=== PATIENT | female | born 1955 | race Caucasian/White ===

== ENCOUNTER 2017-01-06 07:29 | Emergency (ER) | payer OTHER ==
[~2017-01-06] VITALS: Ht 167.6 cm; Wt 90.7 kg
--- NOTE | 2017-01-06 07:39 | Emergency Room Report ---
History of Present Illness General Chief Complaint: Abdominal Pain Source: Patient, EMS Present Illness HPI Patient presents by paramedics chief complaint by paramedics from the rehabilitation facility was regarding abdominal pain and vaginal bleeding However upon arrival the patient appears short of breath and tachypneic felt warm to touch and was hypoxic patient herself is a poor historian Upon evaluation tell staff to stop asking questions She does not want to answer any questions There is no reports of vomiting or diarrhea Unknown regarding vaginal versus rectal bleeding Patient appears anxious and tremulous History of present illness stays limited upon initial arrival Allergies: Coded Allergies: No Known Allergies (Unverified , 01/06/17) Patient History Limited by: medical condition Past Medical History: see triage record Pertinent Family History: unable to obtain, other - brother has ascites Now: No Reviewed Nursing Documentation: PMH: Agreed, PSxH: Agreed Nursing Documentation-PMH Past Medical History: No History, Except For Hx Hypertension: Yes Hx Asthma: No - ANEMIA Hx COPD: No - HYPOTHYROIDISIM Hx Diabetes: Yes Hx Gastrointestinal Problems: Yes - HEP C Review of Systems All Other Systems: limited - Other than the ones mentioned in the history of present illness all others are reviewed however they do stay limited due to the patient's mental status Physical Exam Vital Signs Date Time Temp Pulse Resp B/P (MAP) Pulse Ox O2 Delivery O2 Flow Rate FiO2 01/06/17 07:19 88 20 121/47 96 Non-Rebreather 8.0 Sp02 EP Interpretation: reviewed, normal General Appearance: mild distress - Patient appears anxious uncomfortable Head: normocephalic, atraumatic Eyes: bilateral eye PERRL, bilateral eye EOMI ENT: normal pharynx, no angioedema Neck: supple Respiratory: crackles - diffusely both lower lobes Cardiovascular #1: regular rate, rhythm, no edema Gastrointestinal: other - Some ascites is appreciated, otherwise appropriate bowel sounds, no obvious focal discomfort Rectal: other - Bright red blood per rectum Genitourinary: no CVA tenderness Musculoskeletal: other - no obvious focal deficits Neurologic: alert, oriented x3, responsive Skin: other - poor turgor Lymphatic: no adenopathy Medical Decision Making Diagnostic Impression: Primary Impression: GI bleed Additional Impression: Abdominal pain ER Course Patient is a fairly complex patient with multiple differential to consideration including but not limited to cardiac cardiopulmonary and vascular emergencies Patient had initially presented with possible vaginal bleeding however evaluation reveals it is likely rectal in nature patient's hemoglobin is also low however patient remains hemodynamically stable At this time is appropriate for transfer given insurance reasons Labs Test 01/06/17 07:43 01/06/17 08:43 White Blood Count 11.5 K/UL (4.8-10.8) Red Blood Count 3.11 M/UL (4.20-5.40) Hemoglobin 8.4 G/DL (12.0-16.0) Hematocrit 27.6 % (37.0-47.0) Mean Corpuscular Volume 89 FL (80-99) Mean Corpuscular Hemoglobin 27.1 PG (27.0-31.0) Mean Corpuscular Hemoglobin Concent 30.5 G/DL (32.0-36.0) Red Cell Distribution Width 17.8 % (11.6-14.8) Platelet Count 116 K/UL (150-450) Mean Platelet Volume 7.1 FL (6.5-10.1) Neutrophils (%) (Auto) 69.8 % (45.0-75.0) Lymphocytes (%) (Auto) 14.1 % (20.0-45.0) Monocytes (%) (Auto) 10.4 % (1.0-10.0) Eosinophils (%) (Auto) 4.5 % (0.0-3.0) Basophils (%) (Auto) 1.2 % (0.0-2.0) Prothrombin Time 13.4 SEC (9.30-11.50) Prothromb Time International Ratio 1.3 (0.9-1.1) Activated Partial Thromboplast Time 32 SEC (23-33) Sodium Level 139 MMOL/L (136-145) Potassium Level 5.8 MMOL/L (3.5-5.1) Chloride Level 106 MMOL/L (98-107) Carbon Dioxide Level 29 MMOL/L (21-32) Anion Gap 5 mmol/L (5-15) Blood Urea Nitrogen 35 mg/dL (7-18) Creatinine 1.3 MG/DL (0.55-1.30) Estimat Glomerular Filtration Rate 41.4 mL/min (>60) Glucose Level 124 MG/DL (74-106) Lactic Acid Level 1.90 mmol/L (0.66-2.22) Calcium Level 8.4 MG/DL (8.5-10.1) Phosphorus Level 3.4 MG/DL (2.5-4.9) Magnesium Level 2.1 MG/DL (1.8-2.4) Total Bilirubin 1.4 MG/DL (0.2-1.0) Direct Bilirubin 0.5 MG/DL (0.0-0.3) Aspartate Amino Transf (AST/SGOT) 36 U/L (15-37) Alanine Aminotransferase (ALT/SGPT) 22 U/L (12-78) Alkaline Phosphatase 125 U/L (46-116) Total Creatine Kinase 36 U/L (26-308) Creatine Kinase MB 0.8 NG/ML (0.0-3.6) Creatine Kinase MB Relative Index 2.2 Troponin I 0.007 ng/mL (0.000-0.056) Pro-B-Type Natriuretic Peptide 769 pg/mL (0-125) Total Protein 6.2 G/DL (6.4-8.2) Albumin 2.5 G/DL (3.4-5.0) Globulin 3.7 g/dL Albumin/Globulin Ratio 0.7 (1.0-2.7) Lipase 74 U/L (73-393) Urine Color Yellow Urine Appearance Clear Urine pH 6 (4.5-8.0) Urine Specific Grand Chain 1.010 (1.005-1.035) Urine Protein Negative (NEGATIVE) Urine Glucose (UA) Negative (NEGATIVE) Urine Ketones Negative (NEGATIVE) Urine Occult Blood Negative (NEGATIVE) Urine Nitrite Negative (NEGATIVE) Urine Bilirubin Negative (NEGATIVE) Urine Urobilinogen Normal MG/DL (0.0-1.0) Urine Leukocyte Esterase 1+ (NEGATIVE) Urine RBC 0-2 /HPF (0 - 2) Urine WBC 2-4 /HPF (0 - 2) Urine Squamous Epithelial Cells Few /LPF (NONE/OCC) Urine Bacteria Few /HPF (NONE) Urine Yeast Few /HPF (NONE) Rhythm Strip Diag. Results EP Interpretation: yes Rate: 67 Rhythm: NSR, no PVC's, no ectopy Chest X-Ray Diagnostic Results Chest X-Ray Diagnostic Results : Chest X-Ray Ordered: Yes # of Views/Limited/Complete: 1 View Indication: Chest Pain EP Interpretation: Yes PA Xray: Interpretation reviewed, by supervising MD, and agrees with findings. Impression: No acute disease Last Vital Signs Date Time Temp Pulse Resp B/P (MAP) Pulse Ox O2 Delivery O2 Flow Rate FiO2 01/06/17 07:19 88 20 121/47 96 Non-Rebreather 8.0 Status: improved Disposition: XFER [facility] Condition: Improved GILLIAN MIX D.O. Jan 06, 2017 07:39
[2017-01-06] MEDS ORDERED: CILOSTAZOL100 MG PO (07:42)
[2017-01-06] MEDS ORDERED: LEVOTHYROXINE50 MCG ORAL (07:42)
[2017-01-06] MEDS ORDERED: HYDROXYZINE HCL10 M1 PO (07:42)
[2017-01-06] MEDS ORDERED: GABAPENTIN100 MG ORAL (07:42)
[2017-01-06] MEDS ORDERED: BUMETANIDE2 MG ORAL (07:42)
[2017-01-06] MEDS ORDERED: FOLIC ACID1 MG ORAL (07:42)
[2017-01-06] MEDS ORDERED: LASIX80 MG ORAL (07:42)
[2017-01-06] MEDS ORDERED: POTASSIUM CHLO10 ME3 ORAL (07:42)
[2017-01-06] MEDS ORDERED: CIPROFLOXACIN750 MG ORAL (07:42)
[2017-01-06] MEDS ORDERED: PYRIDOXINE HCL50 MG ORAL (07:42)
[2017-01-06 07:50] VITALS: BP 115/52
[2017-01-06 08:10] LABS: BASOPHILS % (AUTO) 1.2 % (0.0-2.0); EOSINOPHILS % (AUTO) 4.5 % (0.0-3.0); LYMPHOCYTES % (AUTO) 14.1 % (20.0-45.0); MEAN CORPUSCULAR HEMOGLOBIN 27.1 PG (27.0-31.0); MEAN CORPUSCULAR HGB CONC 30.5 G/DL (32.0-36.0); MEAN CORPUSCULAR VOLUME 89 FL (80-99); MEAN PLATELET VOLUME 7.1 FL (6.5-10.1); MONOCYTES % (AUTO) 10.4 % (1.0-10.0); NEUTROPHILS % (AUTO) 69.8 % (45.0-75.0); PLATELET COUNT 116 K/UL (150-450); RED BLOOD COUNT 3.11 M/UL (4.20-5.40); RED CELL DISTRIBUTION WIDTH 17.8 % (11.6-14.8); WHITE BLOOD COUNT 11.5 K/UL (4.8-10.8)
[2017-01-06 08:26] LABS: INR 1.3 (0.9-1.1); PROTHROMBIN TIME 13.4 SEC (9.30-11.50)
[2017-01-06 09:00] VITALS: BP 115/53
[2017-01-06 09:02] LABS: ALANINE AMINOTRANSFERASE 22 U/L (12-78); ALBUMIN/GLOBULIN RATIO 0.7 (1.0-2.7); ANION GAP 5 mmol/L (5-15); ASPARTATE AMINO TRANSFERASE 36 U/L (15-37); CALCIUM 8.4 MG/DL (8.5-10.1); CARBON DIOXIDE 29 MMOL/L (21-32); CHLORIDE 106 MMOL/L (98-107); CKMB 0.8 NG/ML (0.0-3.6); CREATININE 1.3 MG/DL (0.55-1.30); GLOMERULAR FILTRATION RATE 41.4 mL/min (>60); LIPASE 74 U/L (73-393); MAGNESIUM 2.1 MG/DL (1.8-2.4); PHOSPHORUS 3.4 MG/DL (2.5-4.9); POTASSIUM 5.8 MMOL/L (3.5-5.1); SODIUM 139 MMOL/L (136-145); TOTAL PROTEIN 6.2 G/DL (6.4-8.2)
--- NOTE | 2017-01-06 09:03 | Diagnostic Imaging Report ---
Indication: SOB Technique: One view of the chest Comparison: none Findings: The heart is borderline enlarged. There is bilateral interstitial congestion. Atelectatic changes are seen in the right infrahilar region, left midlung periphery. Impression: Findings compatible with mild congestive heart failure. Correlate with clinical findings
[2017-01-06 09:09] LABS: APPEARANCE,URINE CLEAR; KETONES,URINE NEGATIVE (NEGATIVE); LEUKOCYTE ESTERASE ,URINE 1+ (NEGATIVE); NITRITE,URINE NEGATIVE (NEGATIVE); PH,URINE 6 (4.5-8.0); PROTEIN,URINE NEGATIVE (NEGATIVE); UROBILINOGEN,URINE NORMAL MG/DL (0.0-1.0)
[2017-01-06 09:15] LABS: BILIRUBIN,DIRECT 0.5 MG/DL (0.0-0.3)
[2017-01-06] MEDS ORDERED: Sodium Polystyrene Sulfonate 15gm Powder ORAL ONE (09:15)
[2017-01-06 09:21] LABS: BACTERIA,URINE FEW /HPF; RBC,URINE 0-2 /HPF (0 - 2); SQUAMOUS EPITHELIAL CELL,UR FEW /LPF (NONE/OCC); YEAST,URINE FEW /HPF
[2017-01-06 10:00] VITALS: BP 119/56
[2017-01-06 11:05] VITALS: BP 117/54
--- NOTE | 2017-01-09 18:48 | Cardiology Report ---
APPROVED REPORT EKG Measurement Heart [id number] [place] [id number] [id number] Normal sinus rhythm Normal ECG
== END 2017-01-06 11:05 | disposition short-term general hospital (02) ==
LOC: EDBD 07:29 → EMR 08:00
DX: K92.2 Gastrointestinal hemorrhage, unspecified (principal); R10.9 Unspecified abdominal pain; E03.9 Hypothyroidism, unspecified; E11.9 Type 2 diabetes mellitus without complications; I10 Essential (primary) hypertension
CPT/HCPCS: 36415; 71010; 80053; 81003; 82248; 82550; 82553; 82962; 83605; 83690; 83735; 83880; 84100; 84484; 85025; 85610; 85730; 87040; 87086; 93005; 99285